=== PATIENT | male | born 1975 | race Caucasian/White ===

== ENCOUNTER → 2020-06-17 16:09 | Outpatient (BNVA) | payer BC, SELFPAY | PROVIDERS: Visit Provider Nurse Practitioner Family | DX: Z20.828 Contact with and (suspected) exposure to other viral communicable diseases (principal) | CPT/HCPCS: 87635 ==

== ENCOUNTER → 2021-07-24 10:04 | Outpatient (BNVA) | payer BC, SELFPAY | PROVIDERS: Visit Provider Nurse Practitioner Family | DX: Z20.822 Contact with and (suspected) exposure to COVID-19 (principal) | CPT/HCPCS: 87635 ==

== ENCOUNTER 2023-02-04 09:29 | Emergency (ER) | payer OTHER, SELFPAY ==
[2023-02-04 09:48] VITALS: BP 134/92; PULSE 71; RESP 19; TEMP 36.8; O2SAT 95; BMI 35.2
[2023-02-04 10:11] LABS: Basophils # 0.1 10^3/uL (0.0-0.1); Basophils % 0.8 %; Eosinophils # 0.1 10^3/uL (0.0-0.8); Eosinophils % 0.7 %; Hematocrit 44.1 % (42.0-52.0); Hemoglobin 15.1 g/dL (11.7-16.6); Lymphocytes # 2.3 10^3/uL (0.8-4.8); Lymphocytes % 15.8 %; Mean Corpuscular HGB Conc 34.2 g/dL (30.0-36.0); Mean Corpuscular Hemoglobin 30.1 pg (28.0-34.0); Mean Corpuscular Volume 87.8 fl (80-94); Mean Platelet Volume 9.4 fL (7.4-10.4); Monocytes % 6.6 %; Neutrophils # 11.11 10^3/uL (1.8-7.7); Neutrophils % 75.6 %; Nucleated Red Blood Cells % 0 %; Platelet Count 351 10^3/cmm (130-400); Red Blood Count 5.02 10^6/uL (4.1-5.3); Red Cell Distribution Width 12.4 % (12.1-15.1); White Blood Count 14.7 10^3/uL (4.0-10.0)
--- NOTE | 2023-02-04 10:12 | CT_ITS ---
WS: [id number] CT ABDOMEN PELVIS TECHNIQUE: Noncontrast CT of the abdomen and pelvis with coronal and sagittal reformatted images. CLINICAL INFORMATION: L flank/back pain; hx of stones COMPARISON: None. DLP: 882.[address] scans at [facility] use at least one of these dose optimization techniques: automated e xposure control; mA and/or kV adjustment per patient size (includes targeted exams where dose is matc hed to clinical indication); or iterative reconstruction. FINDINGS: Lung bases are well aerated. Slight bibasilar atelectasis. Adrenal glands are normal. No hydronephros is in RIGHT kidney. Moderate LEFT hydronephrosis with LEFT pelvocaliectasis. Obstructing calculus at the LEFT UPJ measuring 5.2 mm. Mild inflammatory stranding and edema about the LEFT kidney. Additiona l nonobstructing calyceal tip calculi. Largest measures 7 mm. Distal LEFT ureter is decompressed. Normal GE junction. Air-fluid level in the stomach. Tiny fat-containing umbilical hernia. Noncontrast liver is normal. Normal noncontrast pancreas. Normal caliber abdominal aorta. No periaortic adenopathy. Fat-containing inguinal hernias RIGHT greater than LEFT. CT/CT kidney stone [id number] IMPRESSION: 1. Obstructing calculus LEFT UPJ measuring 5.2 mm with moderate LEFT hydroneph rosis and pelvocaliectasis. LEFT distal ureter is decompressed. 2. No hydronephrosis in RIGHT kidney. 3. No other acute findings. Notified FREDY Azevedo at 02/04/2023 11:08 AM.
--- NOTE | 2023-02-04 10:14 | ED_ITS ---
HPI - Back Pain/Injury General: Chief Complaint: Abdominal Pain Stated Complaint: n/v, possible kindney stones Time Seen by Provider: 02/04/23 10:00 Source: patient and family Mode of arrival: ambulatory Limitations: no limitations History of Present Illness: Patient is a nice 47-year-old male who presents to ED today with a complaint of left-sided flank and back pain. He states he began developing some mild symptoms yesterday evening that acutely worsened early this morning and were accompanied with nausea and vomiting. He states he has a history of kidney/ureter stones and states this pain feels identical. He is not having any wrapping around sensations into his abdomen. He denies urinary symptoms. Normal bowel movements. No fevers. Has never seen a urologist for previous stones. MD elicited complaint: back pain Pertinent past history: kidney stones Onset (ago): hour(s) Timing: constant Severity: severe Similar Symptoms Previously: Yes Quality: sharp and stabbing Location: left flank and left lower back Radiation: none Exacerbating factors: none Relieving factors: none Associated symptoms: Reports nausea and vomiting; Deny abdominal pain, chills, change in bowel habits, difficulty walking, dysuria, fatigue, fever(s) or urinary urgency Work related injury: No Review of Systems Const: Denies: fever(s), chills, body aches, fatigue or malaise Card: Denies: chest pain Resp: Denies: dyspnea GI: Reports: nausea and vomiting; Denies: abdominal pain, diarrhea or change in bowel habits : Reports: flank pain; Denies: difficulty urinating, dysuria, urinary urgency or urinary hesitancy Musc: Reports: back pain; Denies: neck pain, extremity pain, extremity swelling, joint pain or joint sw elling Skin/Breast: Denies: rash Neuro: Denies: headache(s), numbness in extremities, weakness in extremities, sensory changes, difficulty walking or dizziness PFS ED PFSH: Social History Smoking and tobacco status: never smoked Physical Exam Const: COMMON NORMALS: no acute distress, average body habitus, patient oriented x3, no limitations, healthy appearing, alert and well nourished Eye: COMMON NORMALS: no scleral icterus Resp: COMMON NORMALS: normal respiratory effort and clear to auscultation bilaterally AUSCULTATION: clear to auscultation bilaterally Cardio: COMMON NORMALS: regular rate and regular rhythm RATE: regular rate RHYTHM: regular rhythm GI: COMMON NORMALS: Normal to inspection, nondistended, normoactive bowel sounds present, Soft to palpation, non-tender, No hepatosplenomegaly present and no masses PALPATION: Yes Soft to palpation and Yes No hepatosplenomegaly present : BLADDER/KIDNEY EXAM: Yes CVA tenderness on the left Back/Pelvis: COMMON NORMALS: thoracic and lumbar spine normal to inspection and thoraco-lumbar ROM normal GENERAL BACK: Yes CVA tenderness THORACIC SPINE/UPPER BACK: Yes normal to inspection, No thoracic spinal tenderness, No paraspinal muscle tenderness and No paraspinal muscle spasm LUMBAR S PINE/LOWER BACK: Yes normal to inspection, Yes lumbar ROM normal, No ROM limited, No lumbar spinal tenderness, Yes paraspinal muscle tenderness and No paraspinal muscle spasm PELVIS: Yes buttocks normal and No sciatic notch tenderness SACROILIAC JOINTS: Yes SI joints normal SACRUM: no tenderness COCCYX: no tenderness Extremity: COMMON NORMALS: negative for normal to inspection GENERAL: No normal exam except as noted Neuro: KARTIK COMA SCALE: document GCS findings Kartik coma scale eye opening: Spontaneous [place] coma scale verbal response: Orientated Kartik coma scale motor response: [place]bey commands [place] coma scale total score: 15 COMMON NORMALS: patient oriented x3, moves all extremities, no focal motor deficits and no sensory deficits noted SENSORIUM/ORIENTATION: Yes alert Skin: COMMON NORMALS: no rashes or lesions noted GENERAL SKIN EXAM: no rashes or lesions noted Course Vital Signs: Vital signs: Vital Signs Temperature 98.2 F 02/04/23 09:48 Pulse Rate 71 02/04/23 09:48 Respiratory Rate 19 H 02/04/23 09:48 Blood Pressure 134/92 02/04/23 09:48 Pulse Oximetry 95 02/04/23 09:48 Oxygen Delivery Me thod Room Air 02/04/23 09:48 MDM - Back Pain/Injury Medical Decision Making Patient was found to have a 5.2 mm left UPJ stone. His vital signs are normal. Blood work is unremarkable. There is no infection on his UA. Pain was easily controlled here. Patient will be discharged home with pain/nausea medications as well as Flomax and case management referral made for follow-up urology. Strict return to ED precautions given. Labs 02/04/23 10:05 02/04/23 10:05 Radiology Impressions Abdomen/Pelvis CT 02/04/23 10:12 IMPRESSION: 1. Obstructing calculus LEFT UPJ measuring 5.2 mm with moderate LEFT hydronephrosis and pelvocaliectasis. LEFT distal ureter is decompressed. 2. No hydronephrosis in RIGHT kidney. 3. No other acute findings. Notified FREDY Azevedo at 02/04/2023 11:08 AM. Laboratory Results WBC 14.7 10^3/uL (4.0-10.0) H 02/04/23 10:05 RBC 5.02 10^6/uL (4.1-5.3) 02/04/23 10:05 Hgb 15.1 g/dL (11.7-16.6) 02/04/23 10:05 Hct 44.1 % (42.0-52.0) 02/04/23 10:05 MCV 87.8 fl (80-94) 02/04/23 10:05 MCH 30.1 pg (28.0-34.0) 02/04/23 10:05 MCHC 34.2 g/dL (30.0-36.0) 02/04/23 10:05 RDW 12.4 % (12.1-15.1) 02/04/23 10:05 Plt Count 351 10^3/cmm (130-400) 02/04/23 10:05 MPV 9.4 fL (7.4-10.4) 02/04/23 10:05 Neut % (Auto) 75.6 % 02/04/23 10:05 Lymph % (Auto) 15.8 % 02/04/23 10:05 [place] % (Auto) 6.6 % 02/04/23 10:05 Eos % (Auto) 0.7 % 02/04/23 10:05 Baso % (Auto) 0.8 % 02/04/23 10:05 Neut # (Auto) 11.11 10^3/uL (1.8-7.7) H 02/04/23 10:05 Lymph # (Auto) 2.3 10^3/uL (0.8-4.8) 02/04/23 10:05 [place] # (Auto) 1.0 10^3/uL (0.2-0.9) H 02/04/23 10:05 Eos # (Auto) 0.1 10^3/uL (0.0-0.8) 02/04/23 10:05 Baso # (Auto) 0.1 10^3/uL (0.0-0.1) 02/04/23 10:05 Nucleated RBC % (auto) 0 % 02/04/23 10:05 Nucleated RBCs # 0.0 /100WBC 02/04/23 10:05 Sodium 139 mmol/L (136-145) 02/04/23 10:05 Potassium 4.0 mmol/L (3.5-5.1) 02/04/23 10:05 Chloride 104 mmol/L (98-107) 02/04/23 10:05 Carbon Dioxide 22 mmol/L (22-29) 02/04/23 10:05 Anion Gap 17.0 (5-19) 02/04/23 10:05 BUN 17 mg/dL (6-20) 02/04/23 10:05 Creatinine 1.2 mg/dL (0.7-1.2) 02/04/23 10:05 GFR Calculation 64.4 mL/min (90-130) L 02/04/23 10:05 Glucose 112 mg/dL (65-115) 02/04/23 10:05 Calculated Osmolality 290 mOsm/kg (285-295) 02/04/23 10:05 Calcium 9.2 mg/dL (8.5-10.5) 02/04/23 10:05 Total Bilirubin 0.8 mg/dL (0.15-1.2) 02/04/23 10:05 AST 25 U/L (0-40) 02/04/23 10:05 ALT 26 U/L (0-41) 02/04/23 10:05 Alkaline Phosphatase 88 U/L (40-130) 02/04/23 10:05 Total Protein 6.8 g/dL (6.6-8.7) 02/04/23 10:05 Albumin 4.5 g/dL (3.5-5.2) 02/04/23 10:05 Globulin 2.3 g/dL (1.3-4.6) 02/04/23 10:05 Lipase 41 U/L (13-60) 02/04/23 10:05 Urine Color Yellow (Yellow) 02/04/23 10:31 Urine Appearance Clear (CLEAR) 02/04/23 10:31 Urine pH 5 (5-7) 02/04/23 10:31 Ur Specific [place] 1.025 (1.005-1.030) 02/04/23 10:31 Urine Protein Neg (Negative) 02/04/23 10:31 Urine Glucose (UA) Norm (Normal) 02/04/23 10:31 Urine Ketones Negative (Negative) 02/04/23 10:31 Urine Blood 3+ (Negative) H 02/04/23 10:31 Urine Nitrate Negative (Negative) 02/04/23 10:31 Urine Bilirubin Neg (Negative) 02/04/23 10:31 Urine Urobilinogen Norm mg/dL (Negative) 02/04/23 10:31 Ur Leukocyte Esterase Negative (Negative) 02/04/23 10:31 Urine RBC 0-4 /hpf (0-2) H 02/04/23 10:31 Urine WBC None /hpf (0-5) 02/04/23 10:31 Ur Squamous Epith Cells None /hpf (0-5) 02/04/23 10:31 Amorphous Sediment Not Reportable 02/04/23 10:31 Urine Bacteria Trace /hpf (NONE) 02/04/23 10:31 Discharge Plan Discharge Patient Disposition: Home Clinical Impression: Calculus of proximal left ureter Condition: Stable Prescriptions: New hydrocodone-acetaminophen 5-325 mg tablet 1 tab PO Q6H PRN (Reason: pain) Qty: 14 0RF Flomax 0.4 mg capsule 0.4 mg PO DAILY Qty: 10 0RF ondansetron 4 mg tablet,disintegrating 4 mg PO Q8H PRN (Reason: nausea and vomiting) Qty: 14 0RF No Action valacyclovir 500 mg tablet 500 mg PO DAILY omeprazole 20 mg capsule,delayed release(DR/EC) 20 mg PO DAILY Discharge Orders: Discharge ED (Routine); Ordered 02/04/23 Ordered By: Christiana Webb Referrals: Rajesh Mcclain MD [Primary Care Provider] - Patient Instructions: How to Strain Your Urine (ED), Ureteral Stones (ED), Opioid Safety, Pain Management Activity Restrictions/Additional Instructions: As we discussed case management work on getting you set up with a follow-up urology appointment. As we discussed you need to drink as much water as possible to help flush stone. You have been given a urinary strainer to start straining your urine. If you pass the stone you need to bring it with you to your follow-up appointment. As we discussed you need to return to the emergency department for worsening or uncontrollable backslash flank pain, repetitive episodes of vomiting, fevers, generally feeling worse or unwell, or any other concerns you may have. I hope you begin to feel better soon. Coding Level of Care Code ED Jar Capper for Elian Sun
[2023-02-04] MEDS: ketorolac 60 mg/2 mL INJ 30 MG IVP (10:20)
[2023-02-04] MEDS: ondansetron 2 mg/ML SDV 2 mL 4 MG IVP (10:20)
[2023-02-04 10:56] LABS: Alanine Aminotransferase 26 U/L (0-41); Albumin Level 4.5 g/dL (3.5-5.2); Alkaline Phosphatase 88 U/L (40-130); Aspartate Amino Transferase 25 U/L (0-40); Blood Urea Nitrogen 17 mg/dL (6-20); Calcium 9.2 mg/dL (8.5-10.5); Carbon Dioxide 22 mmol/L (22-29); Chloride 104 mmol/L (98-107); Globulin 2.3 g/dL (1.3-4.6); Glomerular Filtration Rate 64.4 mL/min (90-130); Glucose 112 mg/dL (65-115); Lipase 41 U/L (13-60); Osmolality Calculated 290 mOsm/kg (285-295); Sodium 139 mmol/L (136-145); Total Bilirubin 0.8 mg/dL (0.15-1.2); Total Protein 6.8 g/dL (6.6-8.7)
[2023-02-04 10:57] LABS: Add Urine Microscopic? YES; Bacteria Urine TRACE /hpf; Bilirubin Urine Neg (Negative); Blood Urine 3+ (Negative); Glucose Urine UA Norm (Normal); Ketones Urine Negative (Negative); Leukocyte Esterase Urine Negative (Negative); Nitrate Urine Negative (Negative); Protein Urine Neg (Negative); RBC Urine 0-4 /hpf (0-2); Specific Gravity, Urine 1.025 (1.005-1.030); Urine Appearance Clear (CLEAR); Urine Color Yellow (Yellow); Urobilinogen Urine Norm (Negative); pH Urine 5 (5-7)
[2023-02-04 10:58] LABS: Add Urine Culture? No
[2023-02-04 11:45] VITALS: BP 134/92; PULSE 65; O2SAT 97
--- NOTE | 2023-02-04 11:45 | DCPLANNER ---
Addendum entered by Heaven Mahajan 02/06/23 14:34: international operations manager called [facility] to confirm that facility had received patients information. It had been received, it will be reviewed and clinic will call patient with appointment information. Original Note: international operations manager had message to schedule a follow up appointment for patient with urology. international operations manager spoke with patient and his , would like referral sent to [facility] urology. international operations manager faxed patients information to the clinic at fax number - patients information will be reviewed and clinic will call patient with appointment information.
== END 2023-02-04 11:46 | disposition home or self-care (01) ==
PROVIDERS: Emergency Provider Physician Assistant; PCP Family Medicine
DX: N13.2 Hydronephrosis with renal and ureteral calculous obstruction (principal)
CPT/HCPCS: 36415; 74176; 80053; 81001; 83690; 85025; 96374; 96375; 99285; J1885; J2405